=== PATIENT | female | born 1955 | race Caucasian/White ===

== ENCOUNTER 2020-03-26 11:08 | Outpatient (REF) | payer MEDICARE, SELFPAY | END 2020-03-26 11:09 | disposition home or self-care (01) | LOC: HO.LAB 11:08 | PROVIDERS: Visit Provider Hospitalist | DX: Z20.828 Contact with and (suspected) exposure to other viral communicable diseases (principal) | CPT/HCPCS: U0003 ==

== ENCOUNTER 2020-09-29 18:46 | Outpatient (REF) | payer MEDICARE, SELFPAY | END 2020-09-29 18:47 | disposition home or self-care (01) | LOC: HO.LNP 18:46 | PROVIDERS: Visit Provider Family Medicine | DX: Z20.822 Contact with and (suspected) exposure to COVID-19 (principal); R05 Cough | CPT/HCPCS: U0003; U0005 ==

== ENCOUNTER 2021-08-16 10:23 | Outpatient (REF) | payer MEDICARE, SELFPAY ==
[2021-08-16 14:08] LABS: Cholesterol 254 mg/dL; HDL Cholesterol 57 mg/dL; LDL Cholesterol Calculated 174 mg/dl; Triglycerides 116 mg/dL
[2021-08-16 14:16] LABS: TSH reflex Free T4 3.04 uIU/mL (0.32-4.0)
[2021-08-17 14:28] LABS: Leukocytes Stool Qualitative NEGATIVE (NEGATIVE)
[2021-08-17 23:02] LABS: Transglutaminase Ab IgG <1.0 U/mL; Transglutaminase IgA <1.0 U/mL
== END 2021-08-16 10:24 | disposition home or self-care (01) ==
LOC: HO.WFDLDS 10:23
PROVIDERS: Visit Provider Physician Assistant
DX: E78.2 Mixed hyperlipidemia (principal); R14.0 Abdominal distension (gaseous); K52.9 Noninfective gastroenteritis and colitis, unspecified
CPT/HCPCS: 36415; 80061; 84443; 86364; 87045; 87046; 87329; 89055

== ENCOUNTER 2021-08-17 10:55 | Outpatient (REF) | payer MEDICARE, SELFPAY ==
[2021-08-17 13:34] LABS: Hemoglobin 14.6 g/dl (12.0-16.0); Mean Corpuscular HGB Conc 33.2 g/dl (31.0-35.0); Mean Corpuscular Hemoglobin 32.4 pg (27.0-33.0); Mean Corpuscular Volume 97.6 fL (80.0-98.0); Platelet Count 198 X10*3/uL (160-400); Red Blood Count 4.51 X10*6/uL (4.20-5.50); Red Cell Distribution Width 13.4 % (11.0-16.0)
[2021-08-17 13:57] LABS: Alanine Aminotransferase 22 U/L (0-31); Albumin Level 4.3 g/dL (3.5-5.0); Alkaline Phosphatase 102 U/L (39-117); Anion Gap 13 (12-20); Aspartate Amino Transferase 24 U/L (5-31); Bilirubin Total 0.4 mg/dL (0.0-1.0); Blood Urea Nitrogen 12 mg/dL (9-16); C Reactive Protein 2.62 mg/dL (< or = 0.50); Calcium 10.3 mg/dL (8.4-10.2); Carbon Dioxide 25 mmol/L (22-29); Chloride 104 mmol/L (96-108); Estimated Glomerular Filt Rate > 60; Glucose Fasting 102 mg/dL (60-99); Iron 83 mcg/dL (30-160); Percent Iron Saturation 23 % (15-50); Potassium 4.7 mmol/L (3.3-5.1); Sodium 137 mmol/L (135-145); Total Iron Binding Capacity 363 mcg/dL (228-428); Total Protein 7.5 g/dL (6.5-8.0); Unsaturated Iron Binding 280 ug/dL
[2021-08-17 14:11] LABS: Erythrocyte Sedimentation Rate 17 MM/HR (0-20)
== END 2021-08-17 10:56 | disposition home or self-care (01) ==
LOC: HO.WFDLDS 10:55
PROVIDERS: Visit Provider Physician Assistant
DX: K52.9 Noninfective gastroenteritis and colitis, unspecified (principal); E78.2 Mixed hyperlipidemia; D50.9 Iron deficiency anemia, unspecified; K21.9 Gastro-esophageal reflux disease without esophagitis
CPT/HCPCS: 36415; 80053; 83540; 85027; 85652; 86140